=== PATIENT | female | born 1940 | race Hispanic/Latino ===

== ENCOUNTER → 2018-03-03 | Day surgery (SDC) | payer OTHER ==
[2018-02-25 16:38] LABS: BASOPHILS % 0.4 % (0.0-1.0); EOSINOPHILS # (AUTO) 0.2 (0.0-0.4); EOSINOPHILS % 1.8 % (0.0-6.0); HEMATOCRIT 45.4 % (34.2-44.1); HEMOGLOBIN 14.6 g/dL (12.0-16.0); LYMPHOCYTES # (AUTO) 2.6 (1.0-3.2); LYMPHOCYTES % 31.7 % (18.0-39.1); MEAN CORPUSCULAR HGB CONC 32.2 g/dL (31-35); MEAN CORPUSCULAR VOLUME 87.1 fL (81-99); MONOCYTES # (AUTO) 0.5 (0.2-0.8); MONOCYTES % 5.9 % (4.4-11.3); NEUTROPHILS # (AUTO) 4.9 (2.1-6.9); PLATELET COUNT 222 x10e3/uL (140-360); RED BLOOD COUNT 5.21 x10e6/uL (3.6-5.1)
--- NOTE | 2018-02-25 16:55 | Diagnostic Imaging Report ---
EXAMINATION: CHEST 2 VIEWS INDICATION: Arm pain. Chest pain. Preop. COMPARISON: None FINDINGS: TUBES and LINES: None. LUNGS: Lungs are well inflated. Lungs are clear. There is no evidence of pneumonia or pulmonary edema. PLEURA: No pleural effusion or pneumothorax. HEART AND MEDIASTINUM: Tortuous thoracic aorta. Soft tissue density in the right upper mediastinum with smooth contour likely vasculature. BONES AND SOFT TISSUES: No acute osseous lesion. Soft tissues are unremarkable. UPPER ABDOMEN: No free air under the diaphragm. Elevation of the anterior right hemidiaphragm. IMPRESSION: Tortuous thoracic aorta. Soft tissue density in the right upper mediastinum with smooth contour likely vasculature. Signed by: Dr. Valerio Escalona M.D. on 02/25/2018 4:52 PM
[~2018-03-03] MED LIST: ATORVASTATIN CA40 MG PO; CEFAZOLIN SOD 1 GM VIAL ONE; DEXAMETHASONE SOD PHOS INJ 4 MG/ML VIAL ONE; EPHEDRINE SULFATE INJ 50 MG/10 ML SYR ONE; FENTANYL CITRATE/PF 100MCG/2 ML INJ ONE; GABAPENTIN300 MG PO; GLYCOPYRROLATE INJ 1MG/ 5 ML SYR ONE; LIDOCAINE 1% W/EPINEPHRINE 20 ML VIAL ONE; LIDOCAINE HCL 2% LOCAL INJ 5 ML SDV VIAL INJ ONE; LOSARTAN POTAS100 MG PO; MIDAZOLAM HCL 2 MG/2 ML VIAL ONE; MUPIROCIN 2% OINT 22 GM TUBE ONE; NEOMYCIN/POLYMYXIN/DEX (OPTH) 3.5 GM TUBE ONE; NEOSTIGMINE 5 MG/5ML SYR ONE; ONDANSETRON HCL INJ 2 MG/ML VIAL ONE; PROPOFOL IV EMULSION 10 MG/ML 20 ML VIAL ONE; ROCURONIUM BROMIDE 10 MG/ML 5ML VIAL ONE; SEVOFLURANE INHAL SOLN 250 ML PEN BTL ONE; VITAMIN D5000 UNIT PO
--- OUTSIDE RECORDS SUMMARY | 2018-03-03 06:16 | XMS REPORT ---
Author Author [facility] Address Unknown Phone Unavailable Care Team Providers Care Internal Affairs Commander Name Role Phone WENDY TAM Unavailable Unavailable Problems This patient has no known problems. Allergies, Adverse Reactions, Alerts This patient has no known allergies or adverse reactions. Medications This patient has no known medications. Results Test Description Test Time Test Comments Text Results Atomic Results Result Comments CHEST 2 VIEWS 2018-02-25 16:49:00 [facility] [address] [address] Patient Name: CRISTIAN AMBRIZ MR #: [id number] : 1940 Age/Sex: 77/F Req #: [id number] [facility] Physician: Ordered by: WENDY TAM MD Report #: [id number] Location: OR Room/Bed: Procedure: [id number] DX/CHEST 2 VIEWS Exam Date: 02/25/18 Exam Time: 1630 REPORT STATUS: Signed EXAMINATION: CHEST 2 VIEWS INDICATION: Arm pain. Chest pain. Preop. COMPARISON: None FINDINGS: TUBES and LINES: None. LUNGS: Lungs are well inflated. Lungs are clear. There is no evidence of pneumonia or pulmonary edema. PLEURA: No pleural effusion or pneumothorax. HEART AND MEDIASTINUM: Tortuous thoracic aorta. Soft tissue density in the right upper mediastinum with smooth contour likely vasculature. BONES AND SOFT TISSUES: No acute osseous lesion. Soft tissues are unremarkable. UPPER ABDOMEN: No free air under the diaphragm. Elevation of the anterior right hemidiaphragm. IMPRESSION: Tortuous thoracic aorta. Soft tissue density in the right upper mediastinum with smooth contour likely vasculature. Signed by: Dr. Valerio Escalona M.D. on 02/25/2018 4:52 PM Dictated By: VALERIO ESCALONA MD, MD 51 Transcribed By: JASPAL on 02/25/181651 COPY TO: WENDY TAM MD
[2018-03-03 11:40] VITALS: BP 155/94
--- NOTE | 2018-03-04 14:09 | Operative Report ---
DATE OF PROCEDURE: March 03, 2018 PREOPERATIVE DIAGNOSIS: Cicatricial lagophthalmos, right upper eyelid. POSTOPERATIVE DIAGNOSIS: Cicatricial lagophthalmos, right upper eyelid. PROCEDURES PERFORMED 1. Excision of cicatricial lagophthalmos, complete upper eyelid. 2. Full-thickness skin grafting, 10 cm squared. ANESTHESIA: General. HISTORY: The patient is a 77-year-old female. She underwent excision of basal cell carcinoma involving the right upper eyelid in 2011. The wound was closed by the dermatology service. The patient states that in her immediate postop course, she noted the progressive onset of the inability to move the upper eyelid. Over the course of several months, the eyebrow became more inferior in position until she was finally left with a dense scar of soft tissue where the eyebrow was abutting against the eyelashes, and she had no upper lid movement. Patient was recently diagnosed with cataract in the right eye. However, the ophthalmologic surgeon has refused to perform the cataract because of the nonfunctioning right upper eyelid. The patient presented to me for surgical options to try to correct the cicatricial lagophthalmos to see if upper eyelid function could be restored. The risks, benefits and alternatives of treatment were discussed with the patient and the family, and they are prepared to undergo the procedures outlined. DETAILS OF PROCEDURE: The patient was marked preoperatively in the holding area. She was brought to the operating theater. After the induction of adequate general anesthesia, she was prepped and draped in a supine position. A time out was performed. A corneal protector was unable to be placed because of the dense, thickened, upper eyelid scarring, so the procedure had to be performed without the presence of a corneal protector. The procedure was begun laterally at the area of the lateral orbital rim where an incision was marked out. The incision was then made through the skin and subcutaneous tissues, and bleeding was controlled using electrocautery. The plan was to incise the upper limb of the dense cicatrix just below the level of the eyebrow and to release it from superior to inferior down towards the eyelashes. The incision was carried across the entire upper orbital sulcus to the medial canthal area. Using this as a guide, the skin and soft tissues which were densely adherent to the levator structures of the upper eyelid were noted. There did not appear to be any orbital septum present nor any levator aponeurosis. Once the entire upper incision had been made, the soft tissues were then dissected down to the level of the lid margin. The lower limb of the incision was then marked out and the skin and soft tissues incised and then the entire area removed all the way from lateral to medial. This left a defect of approximately 5.5 cm long x 2 cm wide. The wound bed was made hemostatic using the electrocautery at this point. No attempt was made to dissect out the levator or tarsal plate at this time but rather correct the superficial dense cicatrix at this time. The upper lid was noted to have more excursion. However, it remained quite firm. A template of the defect was made, and then a full-thickness skin graft was harvested from the right preauricular area. The template was placed in front of the right ear. The area was infiltrated with 1% Xylocaine with epinephrine and a full-thickness graft harvested. The graft was defatted down to the deep dermal layer, placed onto the defect in the right upper eyelid, and then secured using interrupted chromic sutures. Then 4-0 silks were placed circumferentially around the graft, and then a bolster dressing was fashioned as follows: Xeroform gauze was placed directly on the graft. Moistened cotton balls and then the silk sutures were tied over the cotton balls to maintain the bolster dressing. The right preauricular area was made hemostatic using electrocautery, and then it was closed with 5-0 nylon in a running fashion. Bactroban ointment was placed on the right preauricular area, and a sterile dressing was applied. Maxitrol ophthalmic ointment was placed into the right eye. The estimated blood loss for the procedure was approximately 15 to 20 mL. The patient was returned to the recovery room in satisfactory condition, after making sure that there was no injury to the globe. She was discharged with a postoperative instruction sheet as well as a followup appointment. Job#: [id number] Addendum: Pathology report obtained from [facility] Pathology shows extensive basal cell carcinoma of the specimen with all margins positive. CORINE
== END | disposition home or self-care (01) ==
LOC: OR 06:13
PROVIDERS: ATTEND Plastic Surgery
DX: H02.2 Lagophthalmos (principal); I10 Essential (primary) hypertension; E03.9 Hypothyroidism, unspecified; Z01.810 Encounter for preprocedural cardiovascular examination; Z01.812 Encounter for preprocedural laboratory examination; Z01.818 Encounter for other preprocedural examination
CPT/HCPCS: 15260; 36415; 67966; 71046; 85025; 88305; 93005; J0690; J1100; J2001; J2250; J2405; J2704; J3490